=== PATIENT | female | born 1985 | race Asian ===

== ENCOUNTER 2017-02-14 02:15 | Inpatient (IN) | payer SELFPAY ==
[~2017-02-14] VITALS: Ht 153 cm; Wt 59.0 kg
[2017-02-14] MEDS ORDERED: LR 1,000 ML IV ONE (03:24)
[2017-02-14] MEDS ORDERED: CEFAZOLIN 2 GM IVPB PREMIX 50 ML IV ONE (03:30)
[2017-02-14 04:22] LABS: HEMOGLOBIN 10.8 g/dL (12.0-16.0)
[2017-02-14 04:23] LABS: HEMATOCRIT 33.9 % (36-48); MEAN CORPUSCULAR HEMOGLOBIN 26 pg (27-31); MEAN CORPUSCULAR HGB CONC 32 % (32-36); MEAN CORPUSCULAR VOLUME 81 fL (79.0-98.0); PLATELET COUNT (AUTO) 232 K/uL (130-430); RED CELL DISTRIBUTION WIDTH 19.9 % (9.0-15.0)
[2017-02-14 04:24] LABS: BASOPHILS % (AUTO) 0.3 % (0.0-2.0); EOSINOPHILS # (AUTO) 0.1 K/uL (0.0-0.4); EOSINOPHILS % (AUTO) 2.2 % (0.0-4.0); LYMPHOCYTES # (AUTO) 1.5 K/uL (1.0-5.5); LYMPHOCYTES % (AUTO) 24.7 % (20.5-51.5); MONOCYTES # (AUTO) 0.5 K/uL (0.0-1.0); MONOCYTES % (AUTO) 8.8 % (1.7-9.3); NEUTROPHILS # (AUTO) 3.9 K/uL (1.8-7.7)
[2017-02-14 04:42] LABS: INR 0.9 (0.8-1.2); PROTHROMBIN TIME 8.9 SECS (9.5-12.5)
[2017-02-14 05:47] LABS: BILIRUBIN,URINE NEGATIVE (NEGATIVE); BLOOD, URINE NEGATIVE (NEGATIVE); CLARITY/URINE CLEAR (CLEAR); COLOR,URINE YELLOW (YELLOW); GLUCOSE,URINE NEGATIVE (NEGATIVE); KETONES,URINE NEGATIVE (NEGATIVE); LEUKOCYTE ESTERASE ,URINE NEGATIVE (NEGATIVE); NITRITE, URINE NEGATIVE (NEGATIVE); PROTEIN URINE NEGATIVE (NEGATIVE); UROBILINOGEN,URINE 0.2 (0.2-1.0)
[2017-02-14] MEDS ORDERED: FLU VACC QS 2017-18(36MOS+)/PF 0.5 ML/SYR SYRINGE I.M. PRN (06:00)
[2017-02-14 06:02] VITALS: BP_SYST 122
[2017-02-14] MEDS ORDERED: LR 1,000 ML IV.SOLN IV ONE (07:01)
[2017-02-14] MEDS ORDERED: NS IRRIG SOLN 1000 ML IR ONE (07:01)
[2017-02-14] MEDS ORDERED: MORPHINE SULFATE 10MG/10ML PF AMP EP ONE (07:01)
[2017-02-14] MEDS ORDERED: TRIAMCINOLONE ACETONIDE 40 MG/ML IM ONE (07:01)
[2017-02-14] MEDS ORDERED: OXYTOCIN/NORMAL SALINE 20 UNITS/1,000 ML BAG IV ONE (07:01)
[2017-02-14] MEDS ORDERED: LR 1,000 ML IV SCH (07:35)
[2017-02-14] MEDS ORDERED: ONDANSETRON HCL 4 MG/2 ML VIAL IVP PRN (07:45)
[2017-02-14] MEDS ORDERED: HYDROmorphone 2 MG/ML VIAL IVP PRN ×2 (07:45)
[2017-02-14] MEDS ORDERED: NALOXONE HCL 0.4 MG/ML AMP (NARCAN) IVP PRN (07:45)
[2017-02-14] MEDS ORDERED: HYDROmorphone 1 MG INJ. 1 MG/ML AMPUL IVP PRN (07:45)
[2017-02-14] MEDS ORDERED: ePHEDrine sulfate 50 MG/ML VIAL IVP PRN (07:45)
[2017-02-14] MEDS ORDERED: KETOROLAC TROMETHAMINE 30 MG VIAL IVP PRN (07:45)
[2017-02-14] MEDS ORDERED: NALBUPHINE HCL 10 MG/ML AMP IVP PRN (07:45)
[2017-02-14] MEDS ORDERED: MORPHINE SULFATE 10MG/10ML PF AMP SP SCH (07:45)
[2017-02-14] MEDS ORDERED: DIPHENHYDRAMINE INJ 50 MG/ML VIAL IVP PRN (07:45)
[2017-02-14] MEDS ORDERED: MEPERIDINE HCL/PF 25 MG/ML DISP.SYRIN IVP PRN ×2 (07:45)
[2017-02-14 08:10] VITALS: BP_SYST 100
[2017-02-14] MEDS ORDERED: OXYCODONE/ACETAMINOPHEN 5-325 TABLET PO PRN ×2 (09:15)
[2017-02-14] MEDS ORDERED: HYDROcodone/ACETAMIN 5-325 MG TAB (NORCO/ VICODIN) PO PRN (09:15)
[2017-02-14] MEDS ORDERED: DOCUSATE SODIUM 100 MG CAPSULE PO PRN (09:15)
[2017-02-14] MEDS ORDERED: OXYTOCIN/NORMAL SALINE 1,000 ML IV ONE ×2 (09:15→09:23)
[2017-02-14] MEDS ORDERED: SENNOSIDES/DOCUSATE SODIUM 1 TAB TABLET(SENOKOT-S) PO PRN (09:15)
[2017-02-14] MEDS: KETOROLAC TROMETHAMINE 30 MG VIAL IVP PRN (09:34)
[2017-02-15] MEDS ORDERED: KETOROLAC TROMETHAMINE 30 MG VIAL ONE (02:20)
[2017-02-15] MEDS: KETOROLAC TROMETHAMINE 30 MG VIAL IVP PRN (02:23)
[2017-02-15 07:02] LABS: BASOPHILS % (AUTO) 0.1 % (0.0-2.0); EOSINOPHILS % (AUTO) 0.3 % (0.0-4.0); HEMATOCRIT 26.3 % (36-48); HEMOGLOBIN 8.8 g/dL (12.0-16.0); LYMPHOCYTES # (AUTO) 1.3 K/uL (1.0-5.5); LYMPHOCYTES % (AUTO) 10.9 % (20.5-51.5); MEAN CORPUSCULAR HEMOGLOBIN 27 pg (27-31); MEAN CORPUSCULAR HGB CONC 33 % (32-36); MEAN CORPUSCULAR VOLUME 81 fL (79.0-98.0); MONOCYTES # (AUTO) 0.6 K/uL (0.0-1.0); MONOCYTES % (AUTO) 5.1 % (1.7-9.3); NEUTROPHILS # (AUTO) 9.7 K/uL (1.8-7.7); NEUTROPHILS % (AUTO) 83.6 % (40.0-70.0); PLATELET COUNT (AUTO) 221 K/uL (130-430); RED BLOOD CELL COUNT(AUTO) 3.27 MIL/uL (4.2-6.2); RED CELL DISTRIBUTION WIDTH 19.9 % (9.0-15.0); WHITE BLOOD COUNT (AUTO) 11.6 K/uL (4.8-10.8)
[2017-02-15] MEDS: SIMETHICONE 80 MG TAB.CHEW PO PRN ×2 (10:22→18:14)
[2017-02-15] MEDS: IBUPROFEN 600 MG TABLET PO SCH ×2 (12:00→18:15)
[2017-02-16] MEDS: IBUPROFEN 600 MG TABLET PO SCH ×4 (00:02→17:55)
[2017-02-16] MEDS ORDERED: DIPH-TET-PERTUS Vaccine 0.5 ML VIAL/Tdap (ADACEL) I.M. PRN (10:45)
== END 2017-02-16 19:00 | disposition home or self-care (01) | DRG 766 ==
LOC: SPU 02:15 → OBSVTOIN 02:15 → SPU 02-15 12:07
PROVIDERS: ADMIT Obstetrics & Gynecology; ATTEND Obstetrics & Gynecology
PROC: 10D00Z1 Extraction of Products of Conception, Low, Open Approach (ICD-10-PCS; principal; 2017-02-14 07:30)
DX: O34.211 Maternal care for low transverse scar from previous cesarean delivery (principal); O09.523 Supervision of elderly multigravida, third trimester; Z37.0 Single live birth; Z3A.39 39 weeks gestation of pregnancy
CPT/HCPCS: 36415; 81003; 85025; 85610-TC; 85730-TC; 86592; 86886; 86900; 86901; 90715; 94760; J0690; J1885; J2274; J2590; J3301; J7120; Q2037